=== PATIENT | female | born 1950 | race Caucasian/White ===

== ENCOUNTER 2016-12-23 10:36 | Inpatient (IN) | payer MEDICARE, BC ==
--- NOTE | 2016-12-10 14:34 | HP ---
HISTORY AND PHYSICAL: DATE OF ADMISSION/SURGERY: 12/23/16 DATE OF OFFICE VISIT: 12/10/16. SURGEON: Ellie Woods MD. PROCEDURE: Left total knee arthroplasty. CHIEF COMPLAINT: Left knee pain. HISTORY OF PRESENT ILLNESS: Ms. Harper is a 66-year-old female with continued complaints of left k nee pain. She has failed conservative management and has elected to proceed with a left total knee arthroplasty, which is scheduled for 12/23/[address] Woods. PAST MEDICAL HISTORY: Glaucoma and osteoarthritis. PAST SURGICAL HISTORY: Left knee arthroscopy, right lower extremity vein surgery, hysterectomy, LAS IK, tumor removal from her right axilla, and a tonsillectomy. CURRENT MEDICATIONS: 1. Meloxicam 7.5 once a day. 2. [place]-3 flaxseed oil. 3. Biotin daily. 4. Multivitamin and vitamin D3. 5. Glucosamine. 6. Zolpidem tartrate 5 mg q.h.s. 7. Trazodone 50 mg q.h.s. 8. Dorzolamide HCl/timolol maleate 22.3/6.8 mg/mL. 9. Latanoprost. 10. Dulcolax. ALLERGIES: AMOXICILLIN and LATEX. FAMILY HISTORY: Diabetes. SOCIAL HISTORY: She is a 66-year-old female. She lives with her spouse. She does not smoke, use d rugs, or alcohol. REVIEW OF SYSTEMS: A complete 14-point review of systems was reviewed with the patient. Positive f or difficulty breathing following anesthesia in the past. She denies history of DVT, PE, hepatitis C, HIV, or MRSA. PHYSICAL EXAMINATION GENERAL: She is well developed, well nourished, in no acute distress. VITAL SIGNS: She stands 5 feet 5 inches tall, weighs 160 pounds. Her blood pressure is 122/78, her heart rate is 65. HEENT: Normocephalic, atraumatic. NECK: Supple. No palpable lymph nodes. PULMONARY: Lungs are clear to auscultation bilaterally. CARDIO: Regular rate and rhythm. Strong S1, S2. ABDOMEN: Soft, nontender, nondistended. NEUROLOGICAL: Alert and oriented x3. Cranial nerves II through XII are intact. MUSCULOSKELETAL: Left lower extremity skin is intact. There are no open wounds or abrasions. She has tenderness over the medial and lateral joint line. No varus or valgus instability. Negative La chman's. 2+ dorsalis pedis pulses. Intact sensation. Her lower extremity muscle group strengths a re intact at 5/5. ASSESSMENT AND PLAN: Ms. Harper is a 66-year-old female with complaints of left knee pain seconda ry to advanced osteoarthritis. She has failed conservative management and has elected to proceed wi th a left total knee arthroplasty, which is scheduled for 12/23/[address] Woods discus sed the risks and benefits of the surgery at today's visit and all of her questions were answered. Coumadin, Colace, and Percocet were sent to her pharmacy today for postoperative pain control and DV T prophylaxis. She will see Dr. Woods back 2 weeks after the surgery. DARWIN MANRIQUE [id number]/[facility] #: [id number]
[~2016-12-23 10:36] MED LIST: Buffered Lidocaine 0.9% SYRIN* 5 ML/SYR SYRINGE INTRADERM ONE; Midazolam* 1 MG/ML 5 ML VIAL (5 MG) ONE; fentaNYL* 50 MCG/ML 2 ML VIAL (100 MCG VIAL) ONE
[2016-12-23] MEDS ORDERED: Buffered Lidocaine 0.9% SYRIN* 5 ML/SYR SYRINGE ONE (10:40)
[2016-12-23] MEDS ORDERED: Clindamycin 900 MG IVPREMIX(* 900 MG/50 ML SDV IV ONE (10:40)
[2016-12-23] MEDS ORDERED: Morphine PF AMP (0.5MG/ML)* 5 MG/10 ML AMP ONE (13:35)
[2016-12-23] MEDS ORDERED: Bupivacaine 0.5% W/EPI SDV* 30 ML VIAL ONE (13:50)
[2016-12-23] MEDS ORDERED: Propofol* 10 MG/ML 20 ML BTL IV PUSH ONE ×2 (13:50→14:43)
[2016-12-23] MEDS ORDERED: Bupivacaine 0.5% SDV PF* 30 ML VIAL ONE (13:50)
[2016-12-23] MEDS ORDERED: Nalbuphine* 20 MG/ML 1 ML VIAL IV PRN (14:31)
[2016-12-23] MEDS ORDERED: Ondansetron INJ* 2 MG/ML VIAL IV PRN ×2 (14:31→15:54)
[2016-12-23] MEDS ORDERED: DiMENhydriNATE IV* 50 MG/ML VIAL IV PUSH PRN (14:31)
[2016-12-23] MEDS ORDERED: Naloxone* 0.4 MG/ML 1 ML VIAL IV PRN (14:31)
[2016-12-23] MEDS ORDERED: Scopolamine 1.5 mg* PATCH TRANSDERM PRN (14:31)
[2016-12-23] MEDS ORDERED: PROCHLORPERAZINE INJ 5 MG/ML 2 ML VIAL IV PRN (14:31)
[2016-12-23] MEDS ORDERED: oxyCODONE/Acetamin 5/325 MG* TAB PO PRN (14:31)
[2016-12-23] MEDS ORDERED: Midazolam* 1 MG/ML 2 ML VIAL (2 MG) ONE (15:51)
[2016-12-23] MEDS ORDERED: fentaNYL* 50 MCG/ML 2 ML VIAL (100 MCG VIAL) ONE (15:52)
[2016-12-23] MEDS ORDERED: Polyethylene Glycol 3350* 17 GM PACKET PO PRN (15:54)
[2016-12-23] MEDS ORDERED: Magnesium Hydroxide LIQ* 30 ML UDC PO PRN (15:54)
[2016-12-23] MEDS ORDERED: Zolpidem TAB* 5 MG PO PRN (15:59)
--- NOTE | 2016-12-23 17:32 | RAD ---
HISTORY: Status post left knee arthroplasty COMPARISONS: November 22, 2016 VIEWS: 2, Frontal and lateral views of the left knee FINDINGS: BONE DENSITY: Normal. BONES: The patient is status post left knee arthroplasty. There is no hardware failure or osteolysis. JOINTS: The patient is status post left knee arthroplasty ALIGNMENT: There is no dislocation. SOFT TISSUES: There is post surgical change to the soft tissues OTHER FINDINGS: None. IMPRESSION: STATUS POST LEFT KNEE ARTHROPLASTY
[2016-12-23] MEDS ORDERED: Ondansetron INJ* 2 MG/ML VIAL ONE (20:09)
[2016-12-23] MEDS ORDERED: oxyCODONE/Acetamin 5/325 MG* TAB ONE (22:24)
[2016-12-24] MEDS ORDERED: Warfarin TAB(*) 6 MG PO ONE
[2016-12-24] MEDS: Clindamycin 600 MG IVPREMIX(* 600 MG/50 ML SDV IV SCH ×3 (00:07→16:13)
[2016-12-24] MEDS: Docusate CAP* 100 MG PO SCH ×3 (00:07→21:01)
[2016-12-24] MEDS: PTO Dorzolamide/Timolol OPTH (NF) 10 ML BOT BOTH EYES SCH ×3 (00:25→21:02)
[2016-12-24] MEDS: traZODone TAB* 50 MG TAB PO SCH ×2 (00:25→21:01)
[2016-12-24] MEDS ORDERED: diPHENhydraMINE IV* 50 MG/ML 1 ml VIAL (BENADRYL) IV PRN (05:45)
[2016-12-24] MEDS ORDERED: Acetaminophen TAB* 325 MG PO PRN (05:45)
[2016-12-24] MEDS ORDERED: Ondansetron INJ* 2 MG/ML VIAL IV PRN (05:45)
[2016-12-24] MEDS ORDERED: oxyCODONE/Acetamin 5/325 MG* TAB PO PRN (05:45)
[2016-12-24] MEDS ORDERED: Ondansetron TAB* 4 MG PO PRN (05:45)
[2016-12-24] MEDS: Morphine INJ* 2 MG/ML 1 ML SYRINGE IV PRN ×4 (05:52→15:08)
[2016-12-24 06:39] LABS: Hematocrit 35 % (35-47); Hemoglobin 11.9 g/dl (12.0-16.0)
[2016-12-24 06:53] LABS: BUN/Creatinine Ratio 14.3 (8-20); Calcium 8.9 mg/dL (8.6-10.3); EGFR African American 139.7 (>60); EGFR Non-African American 108.6 (>60)
[2016-12-24] MEDS: oxyCODONE/Acetamin 5/325 MG* TAB PO PRN ×3 (07:19→19:58)
[2016-12-24] MEDS: oxyCODONE SR TAB(*) 10 MG TAB.SR PO SCH ×2 (07:55→21:01)
[2016-12-24] MEDS: LATANOPROST 0.005% BOTH EYES SCH (10:08)
[2016-12-24] MEDS: oxyCODONE TAB* 5 MG TAB PO PRN ×2 (10:28→17:45)
--- NOTE | 2016-12-24 11:02 | PN ---
Progress Note - Progress Note Date of Service: 12/24/16 SOAP: Subjective: Pt. reports severe pain LLE. Objective: LLE - drain removed, tip intact, distally +df/pf, full sens lt, 2+ dp pulse. Vital Signs: Temp Pulse Resp BP Pulse Ox 99.3 F 90 18 96/55 95 12/24/16 08:02 12/24/16 08:02 12/24/16 10:28 12/24/16 08:02 12/24/16 08:02 Laboratory Results - last 24 hr 12/24/16 12/24/16 12/24/16 06:00 06:00 06:00 Hgb 11.9 L Hct 35 INR (Anticoag Therapy) 0.93 Sodium 134 Potassium 4.0 Chloride 99 L Carbon Dioxide 32 Anion Gap 3 BUN 8 Creatinine 0.56 Est GFR ( Amer) 139.7 Est GFR (Non-Af Amer) 108.6 BUN/Creatinine Ratio 14.3 Glucose 136 H Calcium 8.9 Assessment: 66 yo F pod 1 s/p LTKA Plan: wbat lle pt/ot add oxycontin 10 bid lovenox today, 8 coumadin tonight plan d/c home with vns
[2016-12-24] MEDS ORDERED: Enoxaparin(*) 30 MG/0.3 ML SYR SUBCUT SCH (16:00)
[2016-12-24] MEDS ORDERED: HYDROmorphone* 1 MG/ML 1 ML SYR ONE (16:04)
[2016-12-24] MEDS ORDERED: Warfarin TAB(*) 4 MG PO ONE (17:00)
[2016-12-25] MEDS: oxyCODONE TAB* 5 MG TAB PO PRN ×2 (00:14→05:30)
--- NOTE | 2016-12-25 01:40 | OP ---
DATE OF SURGERY: 12/23/16 - ROOM #349 DATE OF : 52 ATTENDING SURGEON: Ellie Woods MD FIELD SUPPORT SPECIALIST: DARWIN Gutierrez. Jasonce did help throughout the procedure with preparation of the leg, wound retraction, manipulation of the knee, and wound closure. ANESTHESIOLOGIST: Dr. Packer. ANESTHESIA: Spinal with adductor nerve block. PRE-OP DIAGNOSIS: Severe end-stage degenerative osteoarthritis of the left knee joint. POST-OP DIAGNOSIS: Severe end-stage degenerative osteoarthritis of the left knee joint. OPERATIVE PROCEDURE: Left total knee arthroplasty. TOURNIQUET TIME: 50 minutes. ESTIMATED BLOOD LOSS: 300 cc. COMPLICATIONS: None. SPECIMENS: Bone and cartilage from the left knee joint sent to Pathology. HARDWARE USED: Cemented Vieyra [employer] Nephew total knee arthroplasty hardware. Two packages of Simplex bone cement. For the femur, left femur Oxinium narrow size 5. For the tibia, size 3 left tibial baseplate. For the insert, an 11 mm posterior stabilized articular insert size 3-4 and for the patella 32 mm 7.5 thickness 3 peg all poly patella. BRIEF HISTORY/INDICATIONS: Ms. Harper is 66-year-old female with years of increasingly severe left knee pain. Radiographs showed [id number] arthritis. She failed conservative treatment with anti-inflammatories, pain medications, intraarticular injections with physical therapy. Patient elected to undergo left total knee arthroplasty due to continued pain and decreased quality of life. Informed consent was obtained from the patient. She understood the risks of the surgery included, but were not limited to bleeding, infection, damage to nearby structures, continued pain, need for further surgery, intraoperative fracture, nerve palsy, hardware failure or loosening, stroke, heart attack, blood clot, and . She wished to proceed. INTRAOPERATIVE FINDINGS: Intraoperatively, the patient had near complete loss of cartilage and patellofemoral compartments. Patella was quite thin and deformed with osteophyte formation. DESCRIPTION OF PROCEDURE: Ms. Harper was identified in the preanesthesia unit. Her left lower extremity was marked as the correct operative side. Informed consent was signed and placed in the chart. The patient was taken to the operating room and placed under spinal anesthesia with an adductor nerve block. A Douglass catheter was placed. Left lower extremity was prepped and draped in the usual sterile fashion. Preop time-out was made to correctly identify the patient's side and site. Appropriate perioperative antibiotics were given within 1 hour of incision. Tourniquet was inflated until total tourniquet time for this procedure was 50 minutes. A 12-cm midline incision was made with a 10-blade and carried down to the extensor mechanism. A new 10-blade was used to make a standard medial parapatellar arthrotomy. The patella was subluxed laterally. Electrocautery was used to elevate soft tissue off the superomedial tibia to the mid sagittal plane. The knee was flexed up. Anterior horn of the lateral meniscus and ACL were sharply released. A drill was used to enter the distal femur. Intramedullary distal femoral cutting guide was pinned on the distal femur. 9 mm of distal femur was carefully removed with an oscillating saw. Next, the external rotation guide was pinned on the distal femur. The distal femur was sized to a size 5. Size 5 multi- cutting jig was pinned on the distal femur. Oscillating saw was used to make the appropriate 4 chamfer cuts. Next, the PCL was completely released. Extramedullary tibial cutting guide was pinned on the proximal tibia. Oscillating saw was used to make the proximal tibial cut perpendicular to the mechanical axis of the tibia. The bone was carefully removed. The knee was brought into full extension. A spacer block had good fit. Medial and lateral ligaments were balanced. Flexion and extension gap was balanced. The knee was flexed up. Lamina commutator v ring assembler was placed both medially and laterally. Any remaining meniscus was carefully removed using electrocautery. Curved osteotome was used to remove any posterior osteophytes. Tibial tray and drop fracisco were placed to once again ensure correct proximal tibial cut alignment and this was confirmed. A size 5 narrow left femoral trial was impacted onto the distal femur and had excellent fit. The box for the posterior stabilized implant was prepared using a reamer and box cut osteotome. Trial size 3 tibial tray with an 11 mm insert trial was placed. The knee was taken through a range of motion and had full extension to 130 degrees of flexion with satisfactory patellofemoral tracking. The patella was everted. The patella was noted to be quite deformed and thin. A 7 mm of patellar bone and cartilage was carefully removed using an oscillating saw. The patella was sized to a size 32. The 3 pegs were drilled through the size 32 guide. A 32 patellar trial was placed and the knee was taken through range of motion and there was satisfactory patellofemoral tracking. All trials were carefully removed. The tibia was subluxed anteriorly and sized to a size 3. Proximal tibia was prepared using a size 3 keel punch. All bony cut surfaces were copiously irrigated with sterile saline and dried. The final implants were cemented into place starting with the tibia, followed by the femur , and last the patella. A 11-mm insert trial was placed while the knee was brought into full extension. The cement was allowed to fully cure and tourniquet was turned down at 50 minutes. The knee was copiously irrigated. Once the cement was fully cured, the insert trial was removed. Any excess cement was carefully removed from around the implant. Electrocautery was used to obtain meticulous hemostasis. Final insert chosen was an 11-mm posterior stabilized articular insert, size 3-4. This was locked into position on the tibial tray. The stability of the insert was checked and rechecked and noted to be stable. The knee was copiously irrigated with sterile saline. Extensor mechanism was closed using interrupted #1 Vicryls over a medium Hemovac drain. The rest of the incision was closed in a layered fashion using 0 and 2-0 Vicryls. Skin was closed using running 3-0 nylon suture. Sterile Xeroform, 4x4s, and Webril were used to cover the incision. Shay wrap and cold pack were placed over this. The patient's anesthesia was reversed without difficulty. She was taken to the PACU in stable condition. Intended weightbearing will be weightbearing as tolerated. Intended DVT prophylaxis will be Coumadin with a Lovenox bridge. [id number]/[facility] #: [id number] [facility]
[2016-12-25] MEDS: oxyCODONE/Acetamin 5/325 MG* TAB PO PRN ×2 (02:28→09:15)
[2016-12-25] MEDS: LATANOPROST 0.005% BOTH EYES SCH (07:17)
[2016-12-25 08:21] LABS: Hematocrit 35 % (35-47)
[2016-12-25] MEDS: oxyCODONE SR TAB(*) 10 MG TAB.SR PO SCH (08:22)
[2016-12-25] MEDS: PTO Dorzolamide/Timolol OPTH (NF) 10 ML BOT BOTH EYES SCH (08:23)
[2016-12-25] MEDS: Docusate CAP* 100 MG PO SCH (08:23)
--- NOTE | 2016-12-25 09:03 | PN ---
Progress Note - Progress Note Date of Service: 12/25/16 SOAP: Subjective: resting comfortably in bed, pain well controlled Objective: Vital Signs Temp Pulse Resp BP Pulse Ox 98.7 F 94 18 112/71 93 12/25/16 03:28 12/25/16 03:28 12/25/16 08:22 12/25/16 03:28 12/25/16 03:28 Laboratory Last Values Hgb 12.0 g/dl (12.0-16.0) 12/25/16 07:56 Hct 35 % (35-47) 12/25/16 07:56 INR (Anticoag Therapy) 0.93 (0.89-1.11) 12/24/16 06:00 Sodium 134 mmol/L (133-145) 12/24/16 06:00 Potassium 4.0 mmol/L (3.5-5.0) 12/24/16 06:00 Chloride 99 mmol/L (101-111) L 12/24/16 06:00 Carbon Dioxide 32 mmol/L (22-32) 12/24/16 06:00 Anion Gap 3 mmol/L (2-11) 12/24/16 06:00 BUN 8 mg/dL (6-24) 12/24/16 06:00 Creatinine 0.56 mg/dL (0.51-0.95) 12/24/16 06:00 Est GFR ( Amer) 139.7 (>60) 12/24/16 06:00 Est GFR (Non-Af Amer) 108.6 (>60) 12/24/16 06:00 BUN/Creatinine Ratio 14.3 (8-20) 12/24/16 06:00 Glucose 136 mg/dL (70-100) H 12/24/16 06:00 Calcium 8.9 mg/dL (8.6-10.3) 12/24/16 06:00 incision: c/d; dressing changed PE:NVI Assessment: s/p left TKA Plan: 1) PT/OT-WBAT 2) Lovenox/ Coumadin/SCD's for DVT prophylaxis 3) Home today; F/U with Dr. Woods in 2 weeks
[2016-12-25 09:34] VITALS: BP 116/74
--- NOTE | 2016-12-26 10:13 | DS ---
DISCHARGE SUMMARY: DATE OF ADMISSION: 12/23/16 DATE OF DISCHARGE: 12/25/16 SURGEON: Dr. Ellie Woods * (DICTATED BY DARWIN MANRIQUE) PRINCIPAL DIAGNOSIS: Severe end-stage osteoarthritis of the left knee. DISCHARGE DIAGNOSIS: Severe end-stage osteoarthritis of the left knee. HISTORY OF PRESENT ILLNESS: Ms. Harper is a 66-year-old female with complaints of left knee pain secondary to severe end-stage osteoarthritis. She had failed conservative management and elected to proceed with a left total knee arthroplasty. HOSPITAL COURSE: Ms. Harper is a 66-year-old female. She was admitted electively to the hospital on 12/23/16, and underwent a left total knee arthroplasty. She tolerated the procedure well. Postoperatively, she was placed on Lovenox and Coumadin for DVT prophylaxis. On postoperative day 1, her H and H was 11 and 35, on postoperative day 2 was 12 and 35. The remainder of her hospital course was unremarkable and at the time of discharge on 12/25/16 , she was afebrile and ambulating well with the aid of a walker. She was discharged home in stable condition. MEDICATIONS UPON DISCHARGE: 1. Colace 100 mg 2 to 3 tabs daily as needed. 2. Trazodone 50 mg at bedtime. 3. Ambien 5 mg at bedtime as needed. 4. Percocet 5/325, 1 to 2 tabs every 4 to 6 hours as needed. PHYSICAL EXAM UPON DISCHARGE: The incisions are clean and dry. There were no signs of infection. She was ambulating well with the aid of walker. Her lower extremity muscular strengths were intact at 5/5. She has 2+ dorsalis pedis pulses and intact sensation. DISCHARGE INSTRUCTIONS: Ms. Harper was discharged home in stable condition. She was given a prescription for Coumadin to take at 5 p.m. nightly for DVT prophylaxis. She was given Percocet to take every 4 to 6 hours as needed for pain. Her Coumadin dosing for Tuesday night is 8 mg, as well as 8 mg on Tuesday night. VNS will recheck her INR on Tuesday. She is weightbearing as tolerated. She will begin physical therapy next week. Dr. Woods would like to see her back in clinic in 2 weeks for wound check and suture removal. We have asked her to call our office sooner with any questions or concerns. DARWIN MANRIQUE [id number]/[facility] #: [id number] [facility]ENTERKhanh
[2016-12-26] MEDS ORDERED: Scopolomine PATCH Remove* 1 NOTE MISC PATCH OFF ONE (14:31)
== END 2016-12-25 11:50 | disposition home health service (06) | DRG 470 ==
LOC: AA 10:36 → SSU 22:18
PROVIDERS: ADMIT Orthopaedic Surgery Adult Reconstructive Orthopaedic Surgery; ATTEND Orthopaedic Surgery Adult Reconstructive Orthopaedic Surgery
PROC: 0SRD0J9 Replacement of Left Knee Joint with Synthetic Substitute, Cemented, Open Approach (ICD-10-PCS; principal; 2016-12-23 13:00)
DX: M17.12 Unilateral primary osteoarthritis, left knee (principal); M25.762 Osteophyte, left knee; F41.9 Anxiety disorder, unspecified; H40.9 Unspecified glaucoma; Z88.1 Allergy status to other antibiotic agents; Z90.710 Acquired absence of both cervix and uterus; Z91.040 Latex allergy status; Z83.3 Family history of diabetes mellitus
CPT/HCPCS: 36415; 80048; 85014; 85018; 85610; 93005; A9270-GY; C1776; J1170; J1650; J2250; J2270; J2405; J2704; J3010

== ENCOUNTER 2017-09-06 09:31 | Day surgery (SDC) | payer MEDICARE, BC ==
--- NOTE | 2017-08-31 16:01 | HP ---
PREOPERATIVE HISTORY AND PHYSICAL: DATE OF ADMISSION/SURGERY: 09/06/17 [facility] DATE OF OFFICE VISIT/ENCOUNTER: 08/31/17 ATTENDING SURGEON: Luiza Monteiro MD * (DICTATED BY DARWIN SINGLETARY) PROCEDURE: Right thumb trigger finger release. CHIEF COMPLAINT: Right thumb triggering. HISTORY OF PRESENT ILLNESS: This is a 66-year-old female who has had catching, clicking, and triggering in her right thumb that has been present since the end of 2016. She denies any injury. Her right thumb is very bothersome, it affects her with dressing, driving, and cleaning, and it is painful when triggering. She has failed conservative treatment including a cortisone injection. She is interested in pursuing surgical intervention at this time for this problem. PAST MEDICAL HISTORY: Seasonal allergies. PAST SURGICAL HISTORY: 1. Left total knee arthroplasty in 2017. 2. Right hand foreign body removal. 3. Hysterectomy. CURRENT MEDICATIONS: 1. Biotin 10 mg daily. 2. Clindamycin 300 mg 2 tabs 1 hour prior to dental work. 3. Diclofenac sodium 1% apply as directed. 4. Dorzolamide HCL/timolol maleate 22.3-6.8 mg/mL. 5. Flaxseed oil 1000 mg daily. 6. Glucosamine 750 mg daily. 7. Ibuprofen 800 mg 1 tab q.8 hours p.r.n. 8. Latanoprost 0.005%. 9. Multivitamin complete 1 daily. 10. [place]-3, 1000 mg daily. 11. Trazodone HCL 50 mg daily. 12. Vitamin D3, 5000 units/mL daily. 13. Zolpidem tartrate 5 mg daily p.r.n. ALLERGIES: 1. LATEX causes skin irritation. 2. AMOXICILLIN causes swelling. FAMILY MEDICAL HISTORY: Diabetes and cancer. 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 She denies tobacco use, recreational drug use and does not drink alcohol. REVIEW OF SYSTEMS: General: Positive for weakness. Negative for fevers, chills, unexplained weight loss or gain. No known anesthesia problems. HEENT: Negative for headache, lightheadedness, syncopal episodes, visual changes. Integumentary: Negative for abrasions, lesions or open wounds. Cardiothoracic: Negative for hypertension, chest pain, palpitations, or edema. Respiratory: Negative for shortness of breath with exertion chronic cough, wheezing. GI: Negative for nausea, vomiting, diarrhea, constipation, GERD. : Negative for nocturia, urinary frequency, urgency, history of UTIs or kidney problems. Musculoskeletal: Positive for current complaint. Negative for chronic or intermittent back pain, or history of fractures. Neurological: Negative for paresthesias, numbness, history of seizure, stroke, or poor balance. Endocrine : Negative for diabetes and thyroid issues. Hematologic: Negative for easy bruising, anemia, bleeding disorders, history of DVT. Infectious Disease: Negative for history of MRSA, hepatitis C, or HIV. PHYSICAL EXAMINATION GENERAL: Well-developed, well-nourished 66-year-old female, in no acute distress. VITAL SIGNS: Height 5 feet 5 inches, weight 165 pounds. Blood pressure 118/76 , pulse rate 77. HEENT: Normocephalic, atraumatic. Pupils are equal, round and reactive to light and accommodation. Extraocular movements are intact. Throat is clear. NECK: Supple. No palpable lymph nodes. PULMONARY: Lungs are clear to auscultation bilaterally. No wheezes, rales or rhonchi. CARDIOVASCULAR: Regular rate and rhythm. No murmurs, rubs, or gallops. No edema. ABDOMEN: Positive bowel sounds, soft and nontender. MUSCULOSKELETAL: On exam of the right thumb, there is no visible swelling or erythema. There is an exquisitely tender nodule palpable at the A1 roberth. Active triggering at the thumb as she moves though range of motion. She has difficulty fully flexing the thumb. Neurovascular function is intact. NEUROLOGICAL: Alert, and oriented x3. Cranial nerves II through XII are intact. Sensation is intact to light touch. IMPRESSION: Right thumb trigger thumb. PLAN: The patient is scheduled to undergo a right thumb trigger finger release with Dr. Monteiro, on 09/06/17. She will return to the office 10 days postop for followup and suture removal. A prescription for Ultracet was e-scribed to the patient's pharmacy for postoperative pain management. DARWIN SINGLETARY [id number]/[facility] #: [id number] [place]
[2017-09-06] MEDS ORDERED: Lidocaine 1% INJ* 10 MG/ML 30 ML SDV ONE (11:15)
[2017-09-06] MEDS ORDERED: fentaNYL* 50 MCG/ML 2 ML VIAL (100 MCG VIAL) ONE (11:15)
[2017-09-06] MEDS ORDERED: Propofol* 10 MG/ML 20 ML BTL IV PUSH ONE (11:18)
[2017-09-06] MEDS ORDERED: Midazolam* 1 MG/ML 2 ML VIAL (2 MG) ONE (11:18)
[2017-09-06] MEDS ORDERED: Naloxone* 0.4 MG/ML 1 ML VIAL IV PRN (11:31)
[2017-09-06 12:18] VITALS: BP 105/75
--- NOTE | 2017-09-07 13:47 | OP ---
DATE OF OPERATION: 09/06/17 [facility] DATE OF : 52 SURGEON: Luiza Monteiro MD EMAIL MARKETING EXECUTIVE: DARWIN Brown ANESTHESIA: Local MAC. PRE-OP DIAGNOSIS: Right trigger thumb. POST-OP DIAGNOSIS: Right trigger thumb. OPERATIVE PROCEDURE: Right trigger thumb release. ESTIMATED BLOOD LOSS: Zero. TOURNIQUET TIME: 5 minutes. INDICATIONS FOR PROCEDURE: Mahogany is a 66-year-old female with painful locking of her right thumb. She presents for trigger thumb release. DESCRIPTION OF PROCEDURE: The patient was brought to the operating room, was given a sedation anesthetic and a local infiltration of 10 cc of 1% plain lidocaine at the volar base of her right thumb. The skin of her right hand and forearm was prepped and draped in the usual sterile fashion. The hand and forearm were exsanguinated and the tourniquet elevated to 250 mmHg. A transverse incision was made centered over the A1 roberth of the right thumb. We dissected bluntly through the subcutaneous tissue. The digital neurovascular bundles were retracted and the A1 roberth was incised longitudinally, completely releasing the flexor tendon, which was in good condition. The wound was irrigated and the skin edges reapproximated with 4-0 nylon suture. The wound was dressed with Xeroform, 4x4, Webril, and an Shay wrap. The patient tolerated the procedure well and was brought to the recovery room in good condition. [id number]/[facility] #: [id number] MTDD
== END 2017-09-06 12:08 | disposition home or self-care (01) ==
LOC: OREAST 09:31
PROVIDERS: ATTEND Orthopaedic Surgery
DX: M65.311 Trigger thumb, right thumb (principal); J30.2 Other seasonal allergic rhinitis; Z91.040 Latex allergy status; Z88.0 Allergy status to penicillin
CPT/HCPCS: J2250; J2704; J3010